=== PATIENT | female | born 1940 | race Caucasian/White ===

== ENCOUNTER 2018-01-28 14:00 | Outpatient (RCR) | payer MEDICARE, OTHER | END 2018-02-01 | LOC: PT 14:00 | PROVIDERS: ATTEND Neurological Surgery | DX: M48.062 Spinal stenosis, lumbar region with neurogenic claudication (principal) | CPT/HCPCS: 97110 ×8; 97161; 97530; G8984 ×2; G8985 ×2 ==

== ENCOUNTER → 2021-02-21 | Outpatient (CLI) | payer MEDICARE, OTHER | LOC: MRI 12:21 | PROVIDERS: ATTEND Psychiatry & Neurology Clinical Neurophysiology | DX: M47.22 Other spondylosis with radiculopathy, cervical region (principal); G44.52 New daily persistent headache (NDPH) | CPT/HCPCS: 70551; 72141 ==

== ENCOUNTER → 2022-09-26 | Outpatient (CLI) | payer MEDICARE | LOC: MRI 12:35 | PROVIDERS: ATTEND Psychiatry & Neurology Clinical Neurophysiology | DX: G45.0 Vertebro-basilar artery syndrome (principal) | CPT/HCPCS: 70544; 70547; 70551 ==

== ENCOUNTER 2022-11-07 11:55 | Inpatient (IN) | payer MEDICARE ==
[2022-11-07] VITALS (24 sets, daily range): BP systolic 107–142; BP diastolic 67–110; PULSE 95–130; RESP 16–26; TEMP 97.9–98.4; O2SAT 90–100
[~2022-11-07] VITALS: Ht 172.7 cm; Wt 87.2 kg
[2022-11-07 12:43] LABS: BASOPHILS % 0.6 % (0.0-1.0); EOSINOPHILS # (AUTO) 0.1 (0.0-0.4); EOSINOPHILS % 1.7 % (0.0-6.0); HEMATOCRIT 41.4 % (34.2-44.1); HEMOGLOBIN 13.8 g/dL (12.0-16.0); LYMPHOCYTES # (AUTO) 1.3 (1.0-3.2); LYMPHOCYTES % 19.8 % (18.0-39.1); MEAN CORPUSCULAR HEMOGLOBIN 29.2 pg (28-32); MEAN CORPUSCULAR HGB CONC 33.3 g/dL (31-35); MEAN CORPUSCULAR VOLUME 87.7 fL (81-99); MONOCYTES # (AUTO) 0.5 (0.2-0.8); MONOCYTES % 7.9 % (4.4-11.3); NEUTROPHILS # (AUTO) 4.4 (2.1-6.9); NEUTROPHILS % 69.5 % (38.7-80.0); PLATELET COUNT 328 x10e3/uL (140-360); RED BLOOD COUNT 4.72 x10e6/uL (3.6-5.1); RED CELL DISTRIBUTION WIDTH 14.4 % (11.7-14.4)
[2022-11-07] MEDS ORDERED: DILTIAZEM HCL 5 MG/ML 5 ML VIAL IV ONE (12:45)
[2022-11-07] MEDS: DILTIAZEM HCL IV SOLN 125 MG in SODIUM CHLORIDE 0.9% 100 ML IV SCH (12:55)
[2022-11-07 13:26] LABS: ALANINE AMINOTRANSFERASE 18 IU/L (0-55); ALBUMIN 3.5 g/dL (3.5-5.0); ALKALINE PHOSPHATASE 69 IU/L (40-150); ANION GAP 15.4 mmol/L (8-16); BLOOD UREA NITROGEN 10 mg/dL (7-26); BUN/CREATININE RATIO 9 (6-25); CALCIUM 9.2 mg/dL (8.4-10.2); CARBON DIOXIDE 21 mmol/L (22-29); CHLORIDE 105 mmol/L (98-107); CREATINE KINASE 55 IU/L (29-168); GLUCOSE 125 mg/dL (74-118); POTASSIUM 3.4 mmol/L (3.5-5.1); SODIUM 138 mmol/L (136-145)
[2022-11-07] MEDS ORDERED: DILTIAZEM HCL 5 MG/ML 5 ML VIAL IV STA (13:30)
[2022-11-07] MEDS ORDERED: FUROSEMIDE INJ 10 MG/ML 4 ML VIAL IV ONE (15:00)
[2022-11-07] MEDS ORDERED: ASPIRIN81 MG PO (15:14)
[2022-11-07] MEDS ORDERED: LOSARTAN POTASS25 MG PO (15:14)
[2022-11-07] MEDS ORDERED: vit d PO (15:14)
[2022-11-07] MEDS ORDERED: MELATONIN3 MG PO (15:16)
[2022-11-07] MEDS ORDERED: METOPROLOL TART25 MG PO (15:16)
[2022-11-07] MEDS ORDERED: B12 ACTIVE1000 MCG PO (15:17)
[2022-11-07] MEDS ORDERED: POTASSIUM CHLORIDE 20MEQ/100ML 100 ML IV ONE (16:00)
[2022-11-07] MEDS ORDERED: FAMOTIDINE 20 MG TAB PO PRN (21:30)
[2022-11-07] MEDS ORDERED: ASPIRIN 81 MG ENTERIC COATED PO STA (21:58)
[2022-11-07] MEDS ORDERED: ASPIRIN 81 MG CHEW TAB PO STA (22:02)
[2022-11-07] MEDS: ENOXAPARIN SODIUM INJ 100 MG/ML SYR SC SCH (22:06)
[2022-11-07] MEDS: MELATONIN 3 MG TAB PO SCH ×2 (22:06→22:57)
[2022-11-07] MEDS ORDERED: POTASSIUM CHLORIDE 20 MEQ TAB CR PO STA (22:07)
[2022-11-07] MEDS ORDERED: MAGNESIUM/ALUMINUM/SIMETHICONE 30 ML UDC PO PRN (22:15)
[2022-11-07] MEDS ORDERED: DOCUSATE SODIUM 100 MG CAP PO PRN (22:15)
[2022-11-07] MEDS ORDERED: ACETAMINOPHEN 325 MG TAB PO PRN (22:15)
[2022-11-07] MEDS ORDERED: ONDANSETRON HCL INJ 2MG/ML 2ML 2 MG/ML VIAL IV PRN (22:15)
[2022-11-07] MEDS ORDERED: GUAIFENESIN/DEXTROMETHORPHAN LIQD 5 ML UDC PO PRN (22:15)
[2022-11-07] MEDS ORDERED: HYDRALAZINE HCL 20 MG/ML VIAL IV PRN (22:15)
[2022-11-08] VITALS (95 sets, daily range): BP systolic 91–137; BP diastolic 56–117; PULSE 66–145; RESP 13–27; TEMP 97.8–98.2; O2SAT 89–100
[2022-11-08 05:01] LABS: BASOPHILS # (AUTO) 0.1 (0.0-0.1); BASOPHILS % 0.8 % (0.0-1.0); EOSINOPHILS # (AUTO) 0.2 (0.0-0.4); EOSINOPHILS % 2.9 % (0.0-6.0); HEMATOCRIT 38.8 % (34.2-44.1); HEMOGLOBIN 12.6 g/dL (12.0-16.0); LYMPHOCYTES # (AUTO) 1.7 (1.0-3.2); LYMPHOCYTES % 27.9 % (18.0-39.1); MEAN CORPUSCULAR HEMOGLOBIN 29.6 pg (28-32); MEAN CORPUSCULAR HGB CONC 32.5 g/dL (31-35); MEAN CORPUSCULAR VOLUME 91.3 fL (81-99); MONOCYTES # (AUTO) 0.7 (0.2-0.8); MONOCYTES % 10.9 % (4.4-11.3); NEUTROPHILS # (AUTO) 3.5 (2.1-6.9); PLATELET COUNT 249 x10e3/uL (140-360); RED BLOOD COUNT 4.25 x10e6/uL (3.6-5.1); RED CELL DISTRIBUTION WIDTH 14.4 % (11.7-14.4)
[2022-11-08 05:38] LABS: ANION GAP 14.4 mmol/L (8-16); CALCIUM 8.5 mg/dL (8.4-10.2); CREATININE, SERUM 0.98 mg/dL (0.57-1.11); POTASSIUM 3.4 mmol/L (3.5-5.1)
[2022-11-08 05:58] LABS: MAGNESIUM 1.6 MG/DL (1.3-2.1); PHOSPHORUS 3.7 MG/DL (2.3-4.7)
[2022-11-08] MEDS: DILTIAZEM HCL IV SOLN 125 MG in SODIUM CHLORIDE 0.9% 100 ML IV SCH ×2 (08:39→10:16)
[2022-11-08] MEDS: POTASSIUM CHLORIDE 20MEQ/100ML 100 ML IV ONE ×2 (08:48→10:17)
[2022-11-08] MEDS: ASPIRIN 81 MG CHEW TAB PO SCH (08:49)
[2022-11-08] MEDS: MUPIROCIN 2% OINT 22 GM TUBE TOP SCH ×2 (08:49→18:06)
[2022-11-08] MEDS: SENNA-S TABLET PO SCH (08:49)
[2022-11-08] MEDS: ENOXAPARIN SODIUM INJ 100 MG/ML SYR SC SCH ×2 (08:50→18:06)
[2022-11-08] MEDS ORDERED: FUROSEMIDE INJ 10 MG/ML 4 ML VIAL IV SCH (09:00)
[2022-11-08] MEDS ORDERED: MULTIVITAMINS/MINERALS TAB PO SCH (09:00)
[2022-11-08] MEDS: LOSARTAN POTASSIUM 25 MG TAB PO SCH ×2 (09:00→17:00)
[2022-11-08 09:21] LABS: CHOL/HDL RATIO 2.7 (3.0-3.6)
[2022-11-08] MEDS ORDERED: FUROSEMIDE INJ 10 MG/ML 2 ML VIAL IV SCH (10:00)
[2022-11-08] MEDS ORDERED: POTASSIUM CHLORIDE 10MEQ EA PO ONE ×2 (10:00→13:00)
[2022-11-08] MEDS ORDERED: AMIODARONE HCL 150 MG/100 ML BAG IV ONE (13:30)
[2022-11-08] MEDS ORDERED: AMIODARONE 900MG 500 ML IV SCH (13:40)
[2022-11-08] MEDS ORDERED: DIGOXIN INJ 0.25 MG/ML 2 ML AMP IV ONE (13:45)
[2022-11-08] MEDS ORDERED: FUROSEMIDE INJ 10 MG/ML 4 ML VIAL IV ONE (18:25)
[2022-11-08] MEDS: MELATONIN 3 MG TAB PO SCH (21:29)
[2022-11-08] MEDS: ATORVASTATIN 40 MG TAB PO SCH (21:29)
[2022-11-09] VITALS (46 sets, daily range): BP systolic 90–146; BP diastolic 61–126; PULSE 62–128; RESP 12–26; TEMP 97.6–98.1; O2SAT 92–98
[2022-11-09 07:20] LABS: BASOPHILS # (AUTO) 0.1 (0.0-0.1); BASOPHILS % 1.1 % (0.0-1.0); EOSINOPHILS # (AUTO) 0.2 (0.0-0.4); EOSINOPHILS % 3.8 % (0.0-6.0); HEMATOCRIT 42.3 % (34.2-44.1); HEMOGLOBIN 13.8 g/dL (12.0-16.0); LYMPHOCYTES # (AUTO) 1.2 (1.0-3.2); LYMPHOCYTES % 22.2 % (18.0-39.1); MEAN CORPUSCULAR HEMOGLOBIN 29.4 pg (28-32); MEAN CORPUSCULAR HGB CONC 32.6 g/dL (31-35); MEAN CORPUSCULAR VOLUME 90.2 fL (81-99); MONOCYTES # (AUTO) 0.6 (0.2-0.8); MONOCYTES % 10.5 % (4.4-11.3); NEUTROPHILS # (AUTO) 3.3 (2.1-6.9); PLATELET COUNT 277 x10e3/uL (140-360); RED BLOOD COUNT 4.69 x10e6/uL (3.6-5.1); RED CELL DISTRIBUTION WIDTH 14.1 % (11.7-14.4)
[2022-11-09 07:51] LABS: ANION GAP 14.6 mmol/L (8-16); POTASSIUM 3.6 mmol/L (3.5-5.1)
[2022-11-09] MEDS: LOSARTAN POTASSIUM 25 MG TAB PO SCH ×2 (08:47→16:52)
[2022-11-09] MEDS: SENNA-S TABLET PO SCH (08:48)
[2022-11-09] MEDS: ASPIRIN 81 MG CHEW TAB PO SCH (08:48)
[2022-11-09] MEDS: ENOXAPARIN SODIUM INJ 100 MG/ML SYR SC SCH ×2 (08:49→16:51)
[2022-11-09] MEDS: MUPIROCIN 2% OINT 22 GM TUBE TOP SCH ×2 (08:49→16:52)
[2022-11-09] MEDS: FUROSEMIDE INJ 10 MG/ML 4 ML VIAL IV SCH (08:49)
[2022-11-09] MEDS ORDERED: POTASSIUM CHLORIDE 20 MEQ TAB CR PO ONE (09:00)
[2022-11-09] MEDS ORDERED: MAGNESIUM SULFATE 2GM/50ML 50 ML IV ONE (09:45)
[2022-11-09] MEDS ORDERED: METOPROLOL SUCCINATE 50 MG TAB XL PO ONE (11:30)
[2022-11-09] MEDS: AMIODARONE HCL 200 MG TAB PO SCH (16:51)
[2022-11-09] MEDS: ATORVASTATIN 40 MG TAB PO SCH (21:12)
[2022-11-09] MEDS: MELATONIN 3 MG TAB PO SCH (21:12)
[2022-11-10] VITALS (13 sets, daily range): BP systolic 103–137; BP diastolic 60–109; PULSE 63–117; RESP 13–26; TEMP 97.6–98.4; O2SAT 88–98
[2022-11-10 04:54] LABS: BASOPHILS # (AUTO) 0.1 (0.0-0.1); EOSINOPHILS # (AUTO) 0.2 (0.0-0.4); EOSINOPHILS % 2.6 % (0.0-6.0); HEMATOCRIT 46.1 % (34.2-44.1); HEMOGLOBIN 15.1 g/dL (12.0-16.0); LYMPHOCYTES # (AUTO) 1.7 (1.0-3.2); LYMPHOCYTES % 27.7 % (18.0-39.1); MEAN CORPUSCULAR HEMOGLOBIN 29.8 pg (28-32); MEAN CORPUSCULAR HGB CONC 32.8 g/dL (31-35); MEAN CORPUSCULAR VOLUME 91.1 fL (81-99); MONOCYTES # (AUTO) 0.6 (0.2-0.8); MONOCYTES % 9.9 % (4.4-11.3); NEUTROPHILS # (AUTO) 3.6 (2.1-6.9); NEUTROPHILS % 58.3 % (38.7-80.0); PLATELET COUNT 283 x10e3/uL (140-360); RED BLOOD COUNT 5.06 x10e6/uL (3.6-5.1)
[2022-11-10 05:12] LABS: ANION GAP 14.5 mmol/L (8-16); CALCIUM 9.2 mg/dL (8.4-10.2); CREATININE, SERUM 1.04 mg/dL (0.57-1.11); POTASSIUM 4.5 mmol/L (3.5-5.1)
[2022-11-10] MEDS ORDERED: BENZOCAINE 20% SPR 60 ML CAN ONE (06:40)
[2022-11-10] MEDS ORDERED: SODIUM CHLORIDE 0.9% 1000ML 1,000 ML ONE (06:40)
[2022-11-10] MEDS ORDERED: MIDAZOLAM HCL 2 MG/2 ML VIAL ONE ×3 (07:20→07:58)
[2022-11-10] MEDS ORDERED: FENTANYL CITRATE/PF 100MCG/2 ML INJ ONE ×2 (07:21→07:53)
[2022-11-10] MEDS ORDERED: DIPHENHYDRAMINE HCL INJ 50 MG/ML VIAL ONE (07:57)
[2022-11-10] MEDS ORDERED: METOPROLOL TARTRATE INJ 1 MG/ML VIAL ONE ×2 (08:01→08:04)
[2022-11-10] MEDS ORDERED: METOPROLOL SUCCINATE 50 MG TAB XL PO SCH (09:00)
[2022-11-10] MEDS: FUROSEMIDE INJ 10 MG/ML 4 ML VIAL IV SCH (09:13)
[2022-11-10] MEDS: APIXABAN 5 MG TABLET PO SCH ×2 (09:13→16:38)
[2022-11-10] MEDS: AMIODARONE HCL 200 MG TAB PO SCH ×2 (09:13→16:39)
[2022-11-10] MEDS: LOSARTAN POTASSIUM 25 MG TAB PO SCH ×2 (09:14→16:38)
[2022-11-10] MEDS: SENNA-S TABLET PO SCH (09:15)
[2022-11-10] MEDS: ASPIRIN 81 MG CHEW TAB PO SCH (09:15)
[2022-11-10] MEDS: MUPIROCIN 2% OINT 22 GM TUBE TOP SCH ×2 (09:16→16:39)
[2022-11-10] MEDS ORDERED: DIGOXIN INJ 0.25 MG/ML 2 ML AMP IV ONE (17:15)
[2022-11-10] MEDS: METOPROLOL SUCCINATE 50 MG TAB XL PO SCH (18:08)
[2022-11-10] MEDS: ATORVASTATIN 40 MG TAB PO SCH (21:00)
[2022-11-10] MEDS: MELATONIN 3 MG TAB PO SCH (21:00)
[2022-11-11] VITALS (12 sets, daily range): BP systolic 93–142; BP diastolic 53–99; PULSE 61–120; RESP 13–20; TEMP 97.6–98.8; O2SAT 94–98
[2022-11-11 07:04] LABS: BASOPHILS # (AUTO) 0.1 (0.0-0.1); BASOPHILS % 0.9 % (0.0-1.0); EOSINOPHILS # (AUTO) 0.3 (0.0-0.4); EOSINOPHILS % 3.9 % (0.0-6.0); HEMOGLOBIN 15.2 g/dL (12.0-16.0); LYMPHOCYTES % 24.7 % (18.0-39.1); MEAN CORPUSCULAR HEMOGLOBIN 29.4 pg (28-32); MONOCYTES # (AUTO) 0.9 (0.2-0.8); MONOCYTES % 10.8 % (4.4-11.3); NEUTROPHILS # (AUTO) 4.7 (2.1-6.9); NEUTROPHILS % 58.9 % (38.7-80.0); PLATELET COUNT 336 x10e3/uL (140-360); RED BLOOD COUNT 5.17 x10e6/uL (3.6-5.1); RED CELL DISTRIBUTION WIDTH 14.2 % (11.7-14.4)
[2022-11-11 07:06] LABS: ANION GAP 13.4 mmol/L (8-16); CALCIUM 9.5 mg/dL (8.4-10.2); CREATININE, SERUM 1.22 mg/dL (0.57-1.11); POTASSIUM 4.4 mmol/L (3.5-5.1)
[2022-11-11] MEDS: AMIODARONE HCL 200 MG TAB PO SCH ×2 (08:00→16:35)
[2022-11-11] MEDS: LOSARTAN POTASSIUM 25 MG TAB PO SCH ×2 (08:03→16:35)
[2022-11-11] MEDS: SENNA-S TABLET PO SCH (08:03)
[2022-11-11] MEDS: APIXABAN 5 MG TABLET PO SCH ×2 (08:03→16:34)
[2022-11-11] MEDS: ASPIRIN 81 MG CHEW TAB PO SCH (08:04)
[2022-11-11] MEDS: MUPIROCIN 2% OINT 22 GM TUBE TOP SCH ×2 (08:05→16:34)
[2022-11-11] MEDS: FUROSEMIDE INJ 10 MG/ML 4 ML VIAL IV SCH (08:05)
[2022-11-11] MEDS: METOPROLOL SUCCINATE 50 MG TAB XL PO SCH ×2 (08:05→16:34)
[2022-11-11] MEDS ORDERED: AMIODARONE HCL200 MG PO ×2 (10:06)
[2022-11-11] MEDS ORDERED: ELIQUIS5 MG PO (10:06)
[2022-11-11] MEDS ORDERED: TOPROL XL50 MG PO (10:06)
[2022-11-11] MEDS ORDERED: ATORVASTATIN CA40 MG PO (10:06)
[2022-11-11] MEDS: MELATONIN 3 MG TAB PO SCH (21:03)
[2022-11-11] MEDS: ATORVASTATIN 40 MG TAB PO SCH (21:04)
[2022-11-12 00:21] VITALS: BP 102/74; PULSE 88; RESP 17; TEMP 97.6; O2SAT 94
[2022-11-12 04:25] VITALS: BP 111/72; PULSE 98; RESP 17; TEMP 97.9; O2SAT 92
[2022-11-12 06:05] LABS: BASOPHILS # (AUTO) 0.1 (0.0-0.1); BASOPHILS % 0.8 % (0.0-1.0); EOSINOPHILS # (AUTO) 0.4 (0.0-0.4); EOSINOPHILS % 5.1 % (0.0-6.0); HEMATOCRIT 42.1 % (34.2-44.1); HEMOGLOBIN 14.2 g/dL (12.0-16.0); LYMPHOCYTES # (AUTO) 1.8 (1.0-3.2); LYMPHOCYTES % 24.3 % (18.0-39.1); MEAN CORPUSCULAR HEMOGLOBIN 29.6 pg (28-32); MEAN CORPUSCULAR HGB CONC 33.7 g/dL (31-35); MEAN CORPUSCULAR VOLUME 87.7 fL (81-99); MONOCYTES # (AUTO) 0.8 (0.2-0.8); MONOCYTES % 10.7 % (4.4-11.3); NEUTROPHILS # (AUTO) 4.4 (2.1-6.9); NEUTROPHILS % 58.2 % (38.7-80.0); PLATELET COUNT 298 x10e3/uL (140-360); RED CELL DISTRIBUTION WIDTH 13.9 % (11.7-14.4)
[2022-11-12 06:38] LABS: ALBUMIN 2.9 g/dL (3.5-5.0); ALBUMIN/GLOBULIN RATIO 0.9 (0.8-2.0); ANION GAP 15.8 mmol/L (8-16); CREATININE, SERUM 1.12 mg/dL (0.57-1.11); MAGNESIUM 1.9 MG/DL (1.3-2.1); POTASSIUM 3.8 mmol/L (3.5-5.1)
[2022-11-12 07:35] VITALS: BP 102/78; PULSE 96; RESP 20; TEMP 97.9; O2SAT 96
[2022-11-12] MEDS: LOSARTAN POTASSIUM 25 MG TAB PO SCH (07:55)
[2022-11-12] MEDS: SENNA-S TABLET PO SCH (08:00)
[2022-11-12] MEDS: METOPROLOL SUCCINATE 50 MG TAB XL PO SCH (08:01)
[2022-11-12] MEDS: APIXABAN 5 MG TABLET PO SCH (08:01)
[2022-11-12] MEDS: AMIODARONE HCL 200 MG TAB PO SCH (08:01)
[2022-11-12] MEDS: ASPIRIN 81 MG CHEW TAB PO SCH (08:01)
[2022-11-12] MEDS: FUROSEMIDE INJ 10 MG/ML 4 ML VIAL IV SCH (08:01)
[2022-11-12 08:02] VITALS: PULSE 107; RESP 20; O2SAT 95
[2022-11-12] MEDS: MUPIROCIN 2% OINT 22 GM TUBE TOP SCH (08:02)
[2022-11-12 09:00] VITALS: BP 102/78; PULSE 107; RESP 20; TEMP 97.9; O2SAT 95
[2022-11-12 11:00] VITALS: BP 104/71; PULSE 105; TEMP 97.8; O2SAT 97
[2022-11-12] MEDS ORDERED: POTASSIUM CHLO20 ME1 PO (14:30)
[2022-11-12] MEDS ORDERED: LASIX40 MG PO (14:30)
[2022-11-17] MEDS ORDERED: AMIODARONE HCL 200 MG TAB PO SCH (09:00)
== END 2022-11-12 15:49 | disposition home or self-care (01) | DRG 308 ==
LOC: ER 12:16 → ERHOLD 13:30 → ICU 14:36 → MED/SURG 11-11 15:38
PROVIDERS: ADMIT Family Medicine Adult Medicine; ATTEND Family Medicine Adult Medicine
PROC: 5A2204Z Restoration of Cardiac Rhythm, Single (ICD-10-PCS; principal; 2022-11-10)
DX: I48.19 Other persistent atrial fibrillation (principal); I50.33 Acute on chronic diastolic (congestive) heart failure; J96.21 Acute and chronic respiratory failure with hypoxia; I13.0 Hypertensive heart and chronic kidney disease with heart failure and stage 1 through stage 4 chronic kidney disease, or unspecified chronic kidney disease; E87.6 Hypokalemia; R00.0 Tachycardia, unspecified; R01.1 Cardiac murmur, unspecified; N18.30 Chronic kidney disease, stage 3 unspecified; W18.30XA Fall on same level, unspecified, initial encounter; E66.9 Obesity, unspecified; Z68.29 Body mass index [BMI] 29.0-29.9, adult; Z90.49 Acquired absence of other specified parts of digestive tract; Z88.2 Allergy status to sulfonamides; Z79.82 Long term (current) use of aspirin; Z86.73 Personal history of transient ischemic attack (TIA), and cerebral infarction without residual deficits; Z20.822 Contact with and (suspected) exposure to COVID-19
CPT/HCPCS: 0223U; 36415; 70450; 71045; 73522; 80048; 80053; 80061; 82550; 83735; 83880; 84100; 84443; 84484; 85025; 92960; 93005; 93306; 93312; 93320; 93325; 93355; 94799; 99152; 99153; 99284; J1160; J1200; J1650; J1940; J2250; J3475; J3480; J7030; J7050

== ENCOUNTER 2023-04-30 21:02 | Inpatient (IN) | payer MEDICARE ==
[~2023-04-30] VITALS: Ht 172.7 cm; Wt 87.1 kg
[~2023-04-30 21:02] MED LIST: AMIODARONE HCL200 MG PO; ASPIRIN81 MG PO; ATORVASTATIN CA40 MG PO; B12 ACTIVE1000 MCG PO; ELIQUIS5 MG PO; LASIX40 MG PO; LOSARTAN POTASS25 MG PO; MELATONIN3 MG PO; METOPROLOL TART25 MG PO; POTASSIUM CHLO20 ME1 PO; TOPROL XL50 MG PO; vit d PO
[2023-04-30] MEDS ORDERED: TRAMADOL HCL 50 MG TAB PO STA (21:25)
[2023-04-30] MEDS ORDERED: ACETAMINOPHEN-1 EAC4 PO (22:52)
[2023-04-30] MEDS ORDERED: ONDANSETRON ODT4 MG PO (22:53)
[2023-04-30] MEDS ORDERED: SODIUM CHLORIDE 0.9% 1000ML 1,000 ML IV SCH (23:30)
[2023-04-30] MEDS ORDERED: ONDANSETRON HCL INJ 2MG/ML 2ML 2 MG/ML VIAL IV PRN (23:30)
[2023-04-30] MEDS ORDERED: Morphine 4mg INJECTION 4 MG/ML INJ IV PRN (23:30)
[2023-05-01] VITALS (8 sets, daily range): BP systolic 128–149; BP diastolic 55–95; PULSE 61–84; RESP 17–18; TEMP 97.4–98.7; O2SAT 92–96
[2023-05-01 00:08] LABS: BASOPHILS % 0.4 % (0.0-1.0); EOSINOPHILS # (AUTO) 0.1 (0.0-0.4); EOSINOPHILS % 0.7 % (0.0-6.0); HEMATOCRIT 41.5 % (34.2-44.1); HEMOGLOBIN 14.3 g/dL (12.0-16.0); LYMPHOCYTES # (AUTO) 1.1 (1.0-3.2); LYMPHOCYTES % 9.8 % (18.0-39.1); MEAN CORPUSCULAR HEMOGLOBIN 30.1 pg (28-32); MEAN CORPUSCULAR HGB CONC 34.5 g/dL (31-35); MEAN CORPUSCULAR VOLUME 87.4 fL (81-99); MONOCYTES # (AUTO) 0.8 (0.2-0.8); MONOCYTES % 6.6 % (4.4-11.3); NEUTROPHILS # (AUTO) 9.3 (2.1-6.9); NEUTROPHILS % 81.2 % (38.7-80.0); PLATELET COUNT 218 x10e3/uL (140-360); RED BLOOD COUNT 4.75 x10e6/uL (3.6-5.1); RED CELL DISTRIBUTION WIDTH 13.2 % (11.7-14.4); WHITE BLOOD COUNT 11.39 x10e3/uL (4.8-10.8)
[2023-05-01 00:30] LABS: ALBUMIN 3.8 g/dL (3.5-5.0); ALBUMIN/GLOBULIN RATIO 1.1 (0.8-2.0); ANION GAP 16.6 mmol/L (8-16); BILIRUBIN,TOTAL 1.5 mg/dL (0.2-1.2); CALCIUM 9.5 mg/dL (8.4-10.2); CREATININE, SERUM 1.15 mg/dL (0.57-1.11); POTASSIUM 3.6 mmol/L (3.5-5.1); TOTAL PROTEIN 7.2 g/dL (6.5-8.1)
[2023-05-01] MEDS ORDERED: METOPROLOL SUCC25 MG PO (02:00)
[2023-05-01] MEDS ORDERED: AMLODIPINE BESYL5 MG PO (02:00)
[2023-05-01] MEDS: TRAMADOL HCL 50 MG TAB PO PRN ×2 (02:06→13:58)
[2023-05-01 06:38] LABS: BASOPHILS % 0.5 % (0.0-1.0); EOSINOPHILS % 0.5 % (0.0-6.0); HEMATOCRIT 38.9 % (34.2-44.1); HEMOGLOBIN 13.4 g/dL (12.0-16.0); LYMPHOCYTES # (AUTO) 0.9 (1.0-3.2); LYMPHOCYTES % 11.6 % (18.0-39.1); MEAN CORPUSCULAR HEMOGLOBIN 30.2 pg (28-32); MEAN CORPUSCULAR HGB CONC 34.4 g/dL (31-35); MEAN CORPUSCULAR VOLUME 87.6 fL (81-99); MONOCYTES # (AUTO) 0.6 (0.2-0.8); NEUTROPHILS # (AUTO) 6.4 (2.1-6.9); NEUTROPHILS % 79.8 % (38.7-80.0); PLATELET COUNT 194 x10e3/uL (140-360); RED BLOOD COUNT 4.44 x10e6/uL (3.6-5.1); RED CELL DISTRIBUTION WIDTH 13.1 % (11.7-14.4); WHITE BLOOD COUNT 8.04 x10e3/uL (4.8-10.8)
[2023-05-01 07:00] LABS: ALBUMIN 3.5 g/dL (3.5-5.0); ALBUMIN/GLOBULIN RATIO 1.1 (0.8-2.0); ANION GAP 13.9 mmol/L (8-16); BILIRUBIN,TOTAL 1.6 mg/dL (0.2-1.2); CALCIUM 9.1 mg/dL (8.4-10.2); CREATININE, SERUM 0.95 mg/dL (0.57-1.11); POTASSIUM 3.9 mmol/L (3.5-5.1); TOTAL PROTEIN 6.6 g/dL (6.5-8.1)
[2023-05-01] MEDS ORDERED: ACETAMINOPHEN WITH CODEINE PO PRN (10:00)
[2023-05-01] MEDS: SENNA-S TABLET PO SCH (17:00)
[2023-05-01] MEDS: APIXABAN 5 MG TABLET PO SCH (17:00)
[2023-05-01] MEDS: MELATONIN 3 MG TAB PO SCH (21:04)
[2023-05-02] VITALS (7 sets, daily range): BP systolic 125–147; BP diastolic 70–80; PULSE 63–80; RESP 18–20; TEMP 97.6–98.6; O2SAT 92–95
[2023-05-02] MEDS: APIXABAN 5 MG TABLET PO SCH ×2 (08:23→16:17)
[2023-05-02] MEDS: METOPROLOL SUCCINATE 25 MG TAB XL PO SCH (08:23)
[2023-05-02] MEDS: SENNA-S TABLET PO SCH ×2 (08:23→16:17)
[2023-05-02] MEDS ORDERED: AMLODIPINE BESYLATE 5 MG TAB PO SCH (09:00)
[2023-05-02] MEDS ORDERED: MAGNESIUM HYDROXIDE 30 ML UDC PO PRN (09:45)
[2023-05-02] MEDS: HYDROCODONE/APAP 5MG-325MG TAB PO PRN (11:08)
[2023-05-02] MEDS: MELATONIN 3 MG TAB PO SCH (20:43)
[2023-05-03] VITALS: BP 138/66; PULSE 60; RESP 20; TEMP 98.6; O2SAT 97
[2023-05-03 04:00] VITALS: BP 136/60; PULSE 73; RESP 20; TEMP 98.6; O2SAT 94
[2023-05-03] MEDS: HYDROCODONE/APAP 5MG-325MG TAB PO PRN ×2 (05:01→12:27)
[2023-05-03] MEDS: SENNA-S TABLET PO SCH ×2 (08:42→16:27)
[2023-05-03] MEDS: APIXABAN 5 MG TABLET PO SCH ×2 (08:42→16:27)
[2023-05-03] MEDS: METOPROLOL SUCCINATE 25 MG TAB XL PO SCH (08:43)
[2023-05-03 09:24] VITALS: BP 130/57; PULSE 64; RESP 19; TEMP 98; O2SAT 95
[2023-05-03 11:43] VITALS: BP 118/57; PULSE 67; RESP 19; TEMP 98.2; O2SAT 97
[2023-05-03] MEDS: ONDANSETRON HCL 4 MG ORAL DISINTEGRATING TAB PO PRN (12:26)
[2023-05-03] MEDS: LIDOCAINE 4% PATCH TP SCH (16:27)
[2023-05-03] MEDS: AMLODIPINE BESYLATE 5 MG TAB PO SCH (16:27)
[2023-05-03 17:40] VITALS: BP 118/69; PULSE 59; RESP 19; TEMP 97.7; O2SAT 95
[2023-05-03 20:00] VITALS: BP 124/71; PULSE 62; RESP 18; TEMP 98.4; O2SAT 98
[2023-05-03] MEDS: MELATONIN 3 MG TAB PO SCH ×2 (21:40→21:52)
[2023-05-04] VITALS (8 sets, daily range): BP systolic 101–149; BP diastolic 56–70; PULSE 61–81; RESP 16–19; TEMP 98–98.8; O2SAT 94–99
[2023-05-04] MEDS: HYDROCODONE/APAP 5MG-325MG TAB PO PRN (05:26)
[2023-05-04] MEDS ORDERED: HYDROCODONE/APAP 10MG-325MG TAB PO PRN (08:30)
[2023-05-04] MEDS ORDERED: MAGNESIUM HYDROXIDE 30 ML UDC PO PRN (08:30)
[2023-05-04] MEDS: APIXABAN 5 MG TABLET PO SCH ×2 (08:40→16:47)
[2023-05-04] MEDS: LIDOCAINE 4% PATCH TP SCH (08:40)
[2023-05-04] MEDS: SENNA-S TABLET PO SCH ×2 (08:40→16:47)
[2023-05-04] MEDS ORDERED: HYDRALAZINE HCL 25 MG TAB PO PRN (08:45)
[2023-05-04] MEDS: CEPHALEXIN 500 MG CAP PO SCH ×3 (09:22→21:30)
[2023-05-04] MEDS: METOPROLOL TARTRATE 25 MG TAB PO SCH ×3 (10:27→16:56)
[2023-05-04 10:45] LABS: CLARITY,URINE CLOUDY (CLEAR); COLOR,URINE YELLOW (YELLOW)
[2023-05-04 10:46] LABS: BILIRUBIN,URINE NEGATIVE (NEGATIVE); GLUCOSE, URINE NEGATIVE (NEGATIVE); KETONES,URINE NEGATIVE (NEGATIVE); LEUKOCYTE ESTERASE ,URINE SMALL (NEGATIVE); NITRITE,URINE POSITIVE (NEGATIVE); PH,URINE 6 (5 - 7); PROTEIN,URINE DIPSTICK NEGATIVE (NEGATIVE); URINE UROBILINOGEN 1 mg/dL (0.2 - 1)
[2023-05-04 11:26] LABS: BACTERIA,URINE MODERATE /HPF; EPITHELIAL CELLS,URINE FEW /LPF; WBC,URINE (MAN) >50 /HPF (0-5)
[2023-05-04] MEDS: AMLODIPINE BESYLATE 5 MG TAB PO SCH (16:47)
[2023-05-04] MEDS ORDERED: Morphine 2mg Syringe 2 MG/ML SYR IV PRN (17:15)
[2023-05-04] MEDS: MELATONIN 3 MG TAB PO SCH (21:30)
[2023-05-05] VITALS (8 sets, daily range): BP systolic 72–142; BP diastolic 56–75; PULSE 61–73; RESP 17–20; TEMP 97.3–98.4; O2SAT 95–99
[2023-05-05 05:55] LABS: BASOPHILS % 0.6 % (0.0-1.0); EOSINOPHILS # (AUTO) 0.4 (0.0-0.4); EOSINOPHILS % 5.8 % (0.0-6.0); HEMATOCRIT 38.4 % (34.2-44.1); HEMOGLOBIN 13.2 g/dL (12.0-16.0); LYMPHOCYTES # (AUTO) 1.4 (1.0-3.2); LYMPHOCYTES % 22.7 % (18.0-39.1); MEAN CORPUSCULAR HEMOGLOBIN 30.5 pg (28-32); MEAN CORPUSCULAR HGB CONC 34.4 g/dL (31-35); MEAN CORPUSCULAR VOLUME 88.7 fL (81-99); MONOCYTES # (AUTO) 0.7 (0.2-0.8); MONOCYTES % 10.6 % (4.4-11.3); NEUTROPHILS # (AUTO) 3.7 (2.1-6.9); PLATELET COUNT 194 x10e3/uL (140-360); RED BLOOD COUNT 4.33 x10e6/uL (3.6-5.1); RED CELL DISTRIBUTION WIDTH 13.2 % (11.7-14.4); WHITE BLOOD COUNT 6.33 x10e3/uL (4.8-10.8)
[2023-05-05 06:11] LABS: ANION GAP 12.7 mmol/L (8-16); CALCIUM 8.9 mg/dL (8.4-10.2); CREATININE, SERUM 0.82 mg/dL (0.57-1.11); POTASSIUM 3.7 mmol/L (3.5-5.1)
[2023-05-05] MEDS: APIXABAN 5 MG TABLET PO SCH ×2 (08:36→17:21)
[2023-05-05] MEDS: METOPROLOL TARTRATE 25 MG TAB PO SCH (08:37)
[2023-05-05] MEDS: LIDOCAINE 4% PATCH TP SCH (08:37)
[2023-05-05] MEDS: CEPHALEXIN 500 MG CAP PO SCH ×3 (08:37→17:21)
[2023-05-05] MEDS: SENNA-S TABLET PO SCH ×2 (08:37→17:21)
[2023-05-05] MEDS: AMLODIPINE BESYLATE 5 MG TAB PO SCH (17:20)
[2023-05-05] MEDS: MELATONIN 3 MG TAB PO SCH (21:22)
[2023-05-06] VITALS (7 sets, daily range): BP systolic 91–141; BP diastolic 55–72; PULSE 58–81; RESP 18–20; TEMP 97–98.3; O2SAT 92–98
[2023-05-06] MEDS: ONDANSETRON HCL 4 MG ORAL DISINTEGRATING TAB PO PRN ×2 (03:58→15:01)
[2023-05-06] MEDS: HYDROCODONE/APAP 7.5MG-325MG 1 EA TAB PO PRN ×2 (03:58→14:55)
[2023-05-06] MEDS: APIXABAN 5 MG TABLET PO SCH ×2 (08:41→16:23)
[2023-05-06] MEDS: SENNA-S TABLET PO SCH ×2 (08:41→16:23)
[2023-05-06] MEDS: METOPROLOL SUCCINATE 25 MG TAB XL PO SCH (08:41)
[2023-05-06] MEDS: CEPHALEXIN 500 MG CAP PO SCH ×3 (08:41→21:54)
[2023-05-06] MEDS: LIDOCAINE 4% PATCH TP SCH (08:42)
[2023-05-06] MEDS ORDERED: TRAMADOL HCL 50 MG TAB PO PRN (14:00)
[2023-05-06] MEDS: AMLODIPINE BESYLATE 5 MG TAB PO SCH (16:23)
[2023-05-07] VITALS (9 sets, daily range): BP systolic 92–129; BP diastolic 57–83; PULSE 59–72; RESP 18–20; TEMP 96.5–98.1; O2SAT 93–97
[2023-05-07 05:33] LABS: BASOPHILS % 0.6 % (0.0-1.0); EOSINOPHILS # (AUTO) 0.4 (0.0-0.4); EOSINOPHILS % 5.5 % (0.0-6.0); HEMATOCRIT 35.7 % (34.2-44.1); LYMPHOCYTES # (AUTO) 1.6 (1.0-3.2); LYMPHOCYTES % 23.6 % (18.0-39.1); MEAN CORPUSCULAR HEMOGLOBIN 30.1 pg (28-32); MEAN CORPUSCULAR HGB CONC 33.6 g/dL (31-35); MEAN CORPUSCULAR VOLUME 89.5 fL (81-99); MONOCYTES # (AUTO) 0.7 (0.2-0.8); MONOCYTES % 9.7 % (4.4-11.3); NEUTROPHILS # (AUTO) 4.1 (2.1-6.9); NEUTROPHILS % 59.7 % (38.7-80.0); PLATELET COUNT 209 x10e3/uL (140-360); RED BLOOD COUNT 3.99 x10e6/uL (3.6-5.1); RED CELL DISTRIBUTION WIDTH 13.3 % (11.7-14.4); WHITE BLOOD COUNT 6.78 x10e3/uL (4.8-10.8)
[2023-05-07 05:55] LABS: ANION GAP 11.7 mmol/L (8-16); CALCIUM 8.5 mg/dL (8.4-10.2); CREATININE, SERUM 0.81 mg/dL (0.57-1.11); POTASSIUM 3.7 mmol/L (3.5-5.1)
[2023-05-07] MEDS: LIDOCAINE 4% PATCH TP SCH (09:51)
[2023-05-07] MEDS: SENNA-S TABLET PO SCH ×2 (09:51→17:00)
[2023-05-07] MEDS: METOPROLOL SUCCINATE 25 MG TAB XL PO SCH (09:51)
[2023-05-07] MEDS: APIXABAN 5 MG TABLET PO SCH ×2 (09:52→17:00)
[2023-05-07] MEDS: CEPHALEXIN 500 MG CAP PO SCH ×3 (09:52→21:27)
[2023-05-07] MEDS: HYDROCODONE/APAP 7.5MG-325MG 1 EA TAB PO PRN (10:29)
[2023-05-07] MEDS: AMLODIPINE BESYLATE 5 MG TAB PO SCH (17:01)
[2023-05-07] MEDS: MELATONIN 3 MG TAB PO SCH (21:27)
[2023-05-08] VITALS (8 sets, daily range): BP systolic 106–141; BP diastolic 62–84; PULSE 63–96; RESP 16–19; TEMP 97.3–99.6; O2SAT 95–99
[2023-05-08] MEDS: LIDOCAINE 4% PATCH TP SCH (10:00)
[2023-05-08] MEDS: CEPHALEXIN 500 MG CAP PO SCH ×3 (10:00→20:40)
[2023-05-08] MEDS: SENNA-S TABLET PO SCH ×2 (10:01→17:00)
[2023-05-08] MEDS: METOPROLOL SUCCINATE 25 MG TAB XL PO SCH (10:01)
[2023-05-08] MEDS: APIXABAN 5 MG TABLET PO SCH ×2 (10:01→17:50)
[2023-05-08 10:12] LABS: BASOPHILS # (AUTO) 0.1 (0.0-0.1); BASOPHILS % 0.8 % (0.0-1.0); EOSINOPHILS # (AUTO) 0.4 (0.0-0.4); EOSINOPHILS % 5.6 % (0.0-6.0); HEMATOCRIT 41.1 % (34.2-44.1); LYMPHOCYTES # (AUTO) 1.1 (1.0-3.2); MEAN CORPUSCULAR HGB CONC 34.1 g/dL (31-35); MEAN CORPUSCULAR VOLUME 88.2 fL (81-99); MONOCYTES # (AUTO) 0.7 (0.2-0.8); MONOCYTES % 10.8 % (4.4-11.3); NEUTROPHILS # (AUTO) 4.1 (2.1-6.9); NEUTROPHILS % 64.8 % (38.7-80.0); PLATELET COUNT 257 x10e3/uL (140-360); RED BLOOD COUNT 4.66 x10e6/uL (3.6-5.1); RED CELL DISTRIBUTION WIDTH 13.3 % (11.7-14.4); WHITE BLOOD COUNT 6.29 x10e3/uL (4.8-10.8)
[2023-05-08 10:38] LABS: ANION GAP 13.2 mmol/L (8-16); CALCIUM 9.1 mg/dL (8.4-10.2); CREATININE, SERUM 0.83 mg/dL (0.57-1.11); POTASSIUM 4.2 mmol/L (3.5-5.1)
[2023-05-08] MEDS: HYDROCODONE/APAP 7.5MG-325MG 1 EA TAB PO PRN (14:23)
[2023-05-08] MEDS: AMLODIPINE BESYLATE 5 MG TAB PO SCH (18:04)
[2023-05-08] MEDS: MELATONIN 3 MG TAB PO SCH (20:40)
[2023-05-09 01:15] VITALS: BP 137/80; PULSE 63; RESP 18; TEMP 97.5; O2SAT 96
[2023-05-09] MEDS: HYDROCODONE/APAP 7.5MG-325MG 1 EA TAB PO PRN (01:20)
[2023-05-09 07:58] VITALS: BP 137/80; PULSE 63; RESP 18; TEMP 97.5; O2SAT 96
[2023-05-09 07:59] VITALS: BP 136/73; PULSE 65; RESP 19; TEMP 98.7; O2SAT 100
[2023-05-09] MEDS: LIDOCAINE 4% PATCH TP SCH (08:18)
[2023-05-09] MEDS: SENNA-S TABLET PO SCH (08:18)
[2023-05-09] MEDS: APIXABAN 5 MG TABLET PO SCH (08:18)
[2023-05-09] MEDS: CEPHALEXIN 500 MG CAP PO SCH (08:18)
[2023-05-09 08:19] VITALS: BP 136/73; PULSE 65
[2023-05-09] MEDS: METOPROLOL SUCCINATE 25 MG TAB XL PO SCH (08:19)
== END 2023-05-09 12:32 | DRG 536 ==
LOC: ER 21:12 → ERHOLD 23:19 → MED/SURG2 05-01 01:19 → OBSVTOIN 05-02 12:58
PROVIDERS: ADMIT Internal Medicine; ATTEND Internal Medicine
DX: S32.511A Fracture of superior rim of right pubis, initial encounter for closed fracture (principal); I48.20 Chronic atrial fibrillation, unspecified; N39.0 Urinary tract infection, site not specified; S32.591A Other specified fracture of right pubis, initial encounter for closed fracture; W01.0XXA Fall on same level from slipping, tripping and stumbling without subsequent striking against object, initial encounter; Y92.009 Unspecified place in unspecified non-institutional (private) residence as the place of occurrence of the external cause; H40.9 Unspecified glaucoma; I10 Essential (primary) hypertension; R26.2 Difficulty in walking, not elsewhere classified; E78.5 Hyperlipidemia, unspecified; M17.11 Unilateral primary osteoarthritis, right knee; I95.1 Orthostatic hypotension; G62.9 Polyneuropathy, unspecified; M47.816 Spondylosis without myelopathy or radiculopathy, lumbar region; M47.812 Spondylosis without myelopathy or radiculopathy, cervical region; R52 Pain, unspecified; Z63.9 Problem related to primary support group, unspecified; Z79.01 Long term (current) use of anticoagulants; Z86.73 Personal history of transient ischemic attack (TIA), and cerebral infarction without residual deficits; Z91.040 Latex allergy status; Z86.718 Personal history of other venous thrombosis and embolism; Z20.822 Contact with and (suspected) exposure to COVID-19
CPT/HCPCS: 36415; 72192; 80048; 80053; 81001; 82948; 85025; 87086; 93971; 99284; G0378; J7030; Q0162; U0002